=== PATIENT | female | born 2000 | race Hispanic/Latino ===

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

== ENCOUNTER 2022-06-17 07:45 | Emergency (ER) | payer MEDICAID ==
[~2022-06-17] VITALS: Ht 167.6 cm; Wt 90.0 kg
[~2022-06-17 07:45] MED LIST changes: +BACTRIM DS1 TAB PO; +CEPHALEXIN500 MG PO; +LORTAB 1010 MG PO
[2022-06-17 07:57] VITALS: BP 135/66
[2022-06-17] MEDS ORDERED: MOTRIN800 MG PO (08:34)
[2022-06-17] MEDS ORDERED: BENZONATATE200 MG PO (08:34)
== END 2022-06-17 08:51 | disposition home or self-care (01) ==
LOC: ED 07:45
DX: J06.9 Acute upper respiratory infection, unspecified (principal)